=== PATIENT | male | born 1955 | race Caucasian/White ===

== ENCOUNTER 2016-09-20 04:26 | Inpatient (IN) | payer OTHER ==
[~2016-09-20] VITALS: Ht 177.8 cm; Wt 94.6 kg
--- NOTE | ~2016-09-20 | EKG ---
PATIENT: SEKOU BROWN UNIT #: [id number] Ventricular Rate: 77 BPM Atrial Rate: 77 BPM P-R Interval: 148 ms QRS Duration: 106 ms Q-T Interval: 354 ms QTC Calculation(Bezet): 400 ms P Independence: 49 degrees Calculated R Independence: -20 degrees Calculated T Independence: 57 degrees Diagnosis Line: Normal sinus rhythm with sinus arrhythmia Diagnosis Line: Abnormal ECG Diagnosis Line: Right bundle branch block -or- right ventricular Diagnosis Line: hypertrophy Diagnosis Line: Diagnosis Line: Confirmed by MISTY PADILLA MD ([id number]) on 09/21/2016 Diagnosis Line: 7:31:48 PM INTERPRETING MD: VALERIE TOLENTINO
--- NOTE | ~2016-09-20 | CR72 ---
[facility] A Service of [facility] RADIOLOGY TEXT RESULTS PATIENT: SEKOU BROWN JR LOCATION: [facility] : 55 UNIT #: [id number] AGE: [address]: Chicho Castellanos MD SEX: M ORDER DR: [id number] [facility] [address] [facility] [place], [place] [address] [id number] I MR#: [id number] Acc #: [id number] NAME: SEKOU BROWN JR : 1955 SEX: M STUDY DATE/TIME: 09/20/2016 5:32 UNIT: [address] ROOM: [facility] STUDY DESCRIPTION: CR Chest Single View Portable Attending Physician: Chicho Castellanos M.D. Ordering Physician: Tyrone Laurent M.D. Primary Care Physician: Guillermo Aceves M.D. MEDICAL IMAGING REPORT This report is preliminary unless electronic signature is present EXAM AP portable chest. DATE 09/20/2016 HISTORY Shortness of breath, chest pain, and COPD this morning. COMPARISON AP portable chest, 03/30/2015. FINDINGS Patchy airspace disease is present within the right lower lobe, consistent the appearance of pneumonia. Background emphysematous changes are thought to be present. Heart size is within normal limits with signs of prior CABG. IMPRESSION 1. New patchy right lower lobe airspace disease in keeping with the appearance of pneumonia. 2. CABG changes. Dictated by... Corinna Howe M.D. THIS IS AN ELECTRONICALLY VERIFIED REPORT Corinna Howe M.D. at 09/20/2016 9:[address] [facility]/candido TD: 09/20/2016 10:13 [facility] A Service [facility] RADIOLOGY TEXT RESULTS PATIENT: SEKOU BROWN JR LOCATION: [facility] : 55 UNIT #: [id number] AGE: [address]: Chicho Castellanos MD SEX: M ORDER DR: JOB #: [id number] MEDICAL IMAGING REPORT Page 1 of 1 COPY
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
--- NOTE | ~2016-09-20 | DS ---
Unit #: [id number] #: [id number] Patient: SEKOU BROWN JR [id number] [address] [address] [id number] I MR#: [id number] NAME: SEKOU BROWN JR ROOM: [facility] Age: 61 Sex: M Admission Date: 09/20/2016 : 1955 Discharge Date: 09/21/2016 Attending Physician: Chicho Castellanos M.D. Primary Care Physician: Guillermo Aceves M.D. DISCHARGE SUMMARY PRIMARY DIAGNOSIS Acute community acquired pneumonia. SECONDARY DIAGNOSES 1. Chronic hypoxemic respiratory failure. 2. Ongoing tobacco abuse. 3. Noncompliance with oxygen. 4. Hypokalemia. 5. Coronary artery disease. 6. Noncompliant for followup with heart and lung doctors. 7. Chronic pain syndrome. 8. Acute exacerbation of chronic obstructive pulmonary disease. HOSPITAL COURSE The patient was admitted to the hospital with community acquired pneumonia and saw Dr. Jenaro Ontiveros with pulmonary and Dr. Heath with cardiology. He was given IV antibiotics. He was given IV steroids. He had the addition of metoprolol to his home medications and advised to start taking a baby aspirin daily in addition to his previous home medications. He will be placed on prednisone taper and given prescriptions for ProAir and Advair inhalers. He will be on Zithromax and Ceftin to continue to treat his pneumonia. DISCHARGE DISPOSITION Home. DISCHARGE STATUS Stable. DISCHARGE ACTIVITY Ad naina. DIET Unrestricted. DISCHARGE MEDICATIONS 1. Ceftin 500 mg p.o. b.i.d. for 8 days. 2. Zithromax 500 mg p.o. daily for 5 days. 3. Prednisone taper, please see prescription. 4. ProAir 2 puffs q.4 h. p.r.n. shortness of breath. 5. Advair 1 inhalation b.i.d. 6. Potassium chloride 20 mEq p.o. b.i.d. 7. Atorvastatin 40 mg p.o. daily. 8. Lyrica 300 mg p.o. b.i.d. Unit #: [id number] #: [id number] Patient: SEKOU BROWN JR 9. Protonix 40 mg p.o. b.i.d. 10. Brilinta 90 mg p.o. b.i.d. 11. Percocet 10 mg 2 tablets p.o. q.i.d. p.r.n. pain. 12. OxyContin 60 mg p.o. b.i.d. 13. Aspirin 81 mg p.o. daily. 14. Losartan 100 mg tablets, take 0.5 tablet daily. 15. Metoprolol tartrate 25 mg p.o. b.i.d. Dictated by... Chicho Castellanos M.D. ALYSE/rebecca TD: 09/22/2016 09:33 JOB #: [id number] DISCHARGE SUMMARY Page 1 of 1 X Chicho Castellanos MD X DISCHARGE SUMMARY
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
[~2016-09-20 04:26] MED LIST: ACETAMINOPHEN PO; ASPIRIN EC81 M1 PO; AUGMENTIN875 MG PO; BACTRIM DS TABL1 TA1 PO; CLINDAMYCIN HC300 MG PO; COLACE PO; COMBIVENT INH14.7 GM; COMBIVENT INH14.7 GM INH; COMBIVENT INHALER INH; COMBIVENT U/D3 ML; COMBIVENT14.7 GM; ERYTHROMYC3.5 GM OPT OS; FAMOTIDINE PO; FLORASTOR250 M1 PO; IPRATR-ALBUTEROL3 ML IH; LORTAB 5/500 TA1 TA1 PO; LYRICA PO; LYRICA300 MG PO; MILK OF MAGNESIA PO; MUCINEX DM1 TAB.SR . PO; NEURONTIN PO; NICOTINE T1 PATCH .2 TOP; OXYCONTIN PO; OXYCONTIN60 MG PO; PERCOCET 10/3251 TAB PO; PERCOCET10 PO; PREDNISONE PO; PREDNISONE10 MG/DOSE PO; ZITHROMAX PO; ZITHROMAX1 G/PKT
[2016-09-20 05:46] LABS: POC - CKMB 1.4 ng/mL (0.0-7.9); POC - TROPONIN <0.05 ng/mL (<=0.05)
[2016-09-20 05:52] LABS: BASOPHIL% 0.2 % (0-2.5); DIFF IND NO; EOSINOPHIL% 0.2 % (0.0-7.0); HEMOGLOBIN 13.2 gm/dL (13.0-16.0); LYMPHOCYTE# 1.1 X10e3 (1.0-3.5); MEAN CELL VOLUME 88.9 FL (83-96); MEAN CORPUSCULAR HEMOGLOBIN 29.4 PG (28-34); MEAN CORPUSCULAR HGB CONC 33.1 g/dL (30-36); MEAN PLATELET VOLUME 7.8 FL (6.5-11.5); MONOCYTE# 0.7 X10e3 (0-1.0); MONOCYTE% 4.7 % (3.0-12.0); NEUTROPHIL# 13.2 X10e3 (1.5-7.1); NEUTROPHIL% 87.9 % (40-75); PLATELET COUNT 218 X10e3 (140-420); RED BLOOD COUNT 4.51 X10e (3.90-5.60); RED CELL DISTRIBUTION WIDTH 15.1 % (11.0-15.5)
[2016-09-20 06:17] LABS: BUN/CREATININE RATIO 15.55; CALCIUM SERUM 8.5 mg/dL (8.4-10.2); CREATININE SERUM 0.9 mg/dL (0.6-1.4); GLOM FILT RATE Estimated 91.9 mL/min (>60); POTASSIUM 3.4 mmol/L (3.5-5.1)
[2016-09-20 11:47] LABS: CHOLESTEROL 174 mg/dL (0-200); HDL CHOLESTEROL 56 mg/dL (29-75); LDL CHOLESTEROL 103 mg/dL (-130); LDL/HDL RATIO 2 RATIO (0-4); TRIGLYCERIDES 77 mg/dL (10-160)
[2016-09-20] MEDS ORDERED: PERCOCET5/325 PO (12:32)
[2016-09-20] MEDS ORDERED: LYRICA300 MG PO (12:33)
[2016-09-20] MEDS ORDERED: OXYCONTIN60 MG PO (12:33)
[2016-09-20] MEDS ORDERED: ATORVASTATIN CA40 MG PO (12:37)
[2016-09-20] MEDS ORDERED: PANTOPRAZOLE SO40 MG PO (12:38)
[2016-09-20] MEDS ORDERED: BRILINTA90 MG PO (12:39)
[2016-09-20] MEDS ORDERED: LOSARTAN POTAS100 MG PO (12:41)
[2016-09-21 05:30] LABS: HEMATOCRIT 39.7 % (38.0-50.0); HEMOGLOBIN 13.2 gm/dL (13.0-16.0); MEAN CORPUSCULAR HEMOGLOBIN 29.6 PG (28-34); MEAN CORPUSCULAR HGB CONC 33.2 g/dL (30-36); MEAN PLATELET VOLUME 8.1 FL (6.5-11.5); RED BLOOD COUNT 4.46 X10e (3.90-5.60); RED CELL DISTRIBUTION WIDTH 15.3 % (11.0-15.5); WHITE BLOOD COUNT 17.8 X10e3 (4.0-10.5)
[2016-09-21 06:18] LABS: BUN/CREATININE RATIO 24.54; CALCIUM SERUM 9.1 mg/dL (8.4-10.2); CREATININE SERUM 1.1 mg/dL (0.6-1.4); GLOM FILT RATE Estimated 72.1 mL/min (>60); MAGNESIUM 1.9 mg/dL (1.6-3.0); POTASSIUM 3.6 mmol/L (3.5-5.1)
[2016-09-21] MEDS ORDERED: LIPITOR40 MG PO (15:20)
[2016-09-21] MEDS ORDERED: METOPROLOL TART25 MG PO (15:20)
[2016-09-21] MEDS ORDERED: ASPIRIN81 MG PO (15:22)
[2016-09-21] MEDS ORDERED: KCL PO (15:24)
[2016-09-21] MEDS ORDERED: PREDNISONE10 MG PO (15:25)
[2016-09-21] MEDS ORDERED: PROAIR HFA8.5 GM INH (15:27)
[2016-09-21] MEDS ORDERED: ADVAIR 115-21 INH (15:28)
[2016-09-21] MEDS ORDERED: ZITHROMAX500 MG PO (15:29)
[2016-09-21] MEDS ORDERED: CEFTIN PO (15:30)
== END 2016-09-21 16:42 | disposition home or self-care (01) | DRG 189 ==
LOC: CED 04:26 → CEDOF 06:35 → CED 07:15 → C3A PCU 07:47 → CEDOF 07:47 → C3A PCU 07:47
PROVIDERS: Emergency Medicine; Internal Medicine; Internal Medicine Cardiovascular Disease
DX: J96.21 Acute and chronic respiratory failure with hypoxia (principal); J18.9 Pneumonia, unspecified organism; T82.858A Stenosis of other vascular prosthetic devices, implants and grafts, initial encounter; J44.0 Chronic obstructive pulmonary disease with (acute) lower respiratory infection; J44.1 Chronic obstructive pulmonary disease with (acute) exacerbation; Z91.19 Patient's noncompliance with other medical treatment and regimen; Z99.81 Dependence on supplemental oxygen; E87.6 Hypokalemia; I25.10 Atherosclerotic heart disease of native coronary artery without angina pectoris; G89.4 Chronic pain syndrome; I08.0 Rheumatic disorders of both mitral and aortic valves; M79.7 Fibromyalgia; G62.9 Polyneuropathy, unspecified; Z88.1 Allergy status to other antibiotic agents; F41.0 Panic disorder [episodic paroxysmal anxiety]; Y71.8 Miscellaneous cardiovascular devices associated with adverse incidents, not elsewhere classified; F41.9 Anxiety disorder, unspecified; E78.5 Hyperlipidemia, unspecified; F17.210 Nicotine dependence, cigarettes, uncomplicated; Z71.6 Tobacco abuse counseling
CPT/HCPCS: 36415; 71010; 80048; 80061; 82553; 83735; 84484; 85025; 85027; 87040; 93005; 94640; 94664; 94760; 96365; 96375; 99285; J0456; J0696; J1650; J2920; J2930

== ENCOUNTER 2016-10-04 22:01 | Inpatient (IN) | payer OTHER ==
[~2016-10-04] VITALS: Ht 177.8 cm; Wt 98.0 kg
--- NOTE | ~2016-10-04 | EKG ---
PATIENT: SEKOU BROWN UNIT #: [id number] Ventricular Rate: 80 BPM Atrial Rate: 80 BPM P-R Interval: 144 ms QRS Duration: 100 ms Q-T Interval: 362 ms QTC Calculation(Bezet): 417 ms P [place]: 69 degrees Calculated R [place]: -23 degrees Calculated T [place]: 51 degrees Diagnosis Line: Sinus rhythm with Premature atrial complexes Diagnosis Line: Nonspecific ST abnormality Diagnosis Line: Abnormal ECG Diagnosis Line: Diagnosis Line: Confirmed by DEMETRIUS WATKINS MD ([id number]) on Diagnosis Line: 10/05/2016 10:37:28 PM INTERPRETING MD: KAUSHAL
--- NOTE | ~2016-10-04 | DS ---
Unit #: [id number] #: [id number] Patient: SEKOU BROWN JR [id number] [address] [address] [id number] I MR#: [id number] NAME: SEKOU BROWN JR ROOM: 337 Age: 61 Sex: M Admission Date: 10/05/2016 : 1955 Discharge Date: 10/06/2016 Attending Physician: Renu Lima M.D. Primary Care Physician: Guillermo Aceves M.D. DISCHARGE SUMMARY DISCHARGE DIAGNOSIS 1. Xhrej-pa-olewjby hypercapnic hypoxic respiratory failure. 2. Chronic obstructive pulmonary disease with exacerbation. 3. Likely cor pulmonale with mild pedal edema. Also could be from steroids. 4. Coronary artery disease with normal left ventricular function. 5. Chronic pain. 6. Hypertension. 7. Smoking. 8. Hyperlipidemia. 9. Peripheral neuropathy. 10. Essential hypertension. 11. Anxiety. 12. History of thoracic aortic aneurysm, 3.6 cm. 13. History of CABG. 14. History of spinal cord stimulator and later removed. 15. Mild hyponatremia. 16. Mild hypocalcemia. 17. Obesity. CONSULTANTS Dr. Ontiveros. PROCEDURES PERFORMED None. DIAGNOSTIC DATA LABORATORY: Sodium 133, potassium 4.7, creatinine 0.8, liver enzymes normal, albumin 3.1, magnesium 2.2, WBC 10.4, hemoglobin 11.9, platelets 292,000. Urinalysis negative for infection. Troponins negative. Strep throat screen negative. IMAGING: Ultrasound of the extremities negative for DVT. Chest x-ray shows no active disease. CARDIOVASCULAR: EKG shows sinus rhythm. ALLERGIES Levaquin. DISCHARGE MEDICATIONS 1. ProAir 8 grams inhalation q.4 h. p.r.n. shortness of breath. 2. Advair 1 inhalation b.i.d. Unit #: [id number] #: [id number] Patient: SEKOU BROWN JR 3. Lyrica 300 mg p.o. b.i.d. 4. Atorvastatin 40 mg daily. 5. Nicotine 21 mg transdermal daily. 6. Metoprolol 25 mg p.o. b.i.d. 7. Lipitor 40 mg daily. 8. Cozaar 50 mg daily. 9. Aspirin 81 mg daily. 10. OxyContin 60 mg p.o. b.i.d. 11. Percocet 20 mg q.4 h. p.r.n. pain. 12. Brilinta 90 mg p.o. daily. 13. Protonix 40 mg p.o. b.i.d. 14. Incruse inhaler daily. 15. Prednisone tapering dose. HOSPITAL COURSE The patient is a 61-year-old admitted because of shortness of breath. Hpfar-ed-wbrwtmh hypoxic hypercapnic respiratory failure from chronic obstructive pulmonary disease. He is on home oxygen. I am going to evaluate home O2 for the daytime. He takes it at nighttime. The patient will have ABG. Chronic obstructive pulmonary disease with exacerbation: Started on IV Solu-Medrol and duo-nebs. Currently breathing better. Continue with Advair, ProAir and Incruse inhaler daily as per Dr. Ontiveros. No urinary tract infection. Pedal edema: Likely from cor pulmonale versus from steroids. Mild. Follow up with primary care physician. Chronic pain: Stable. Continue with home medications. DISPOSITION Discharge home. FOLLOWUP Follow up with family physician in one week time. Discharge time taken was 31 minutes . Dictated by... Saeid Parham/rebecca TD: 10/06/2016 11:19 JOB #: [id number] CC: Guillermo Aceves M.D. Unit #: [id number] #: [id number] Patient: SEKOU BRONW JR DISCHARGE SUMMARY Page 1 of 1 X Renu Lima MD X DISCHARGE SUMMARY
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
--- NOTE | ~2016-10-04 | CR72 ---
[facility] A Service of [facility] RADIOLOGY TEXT RESULTS PATIENT: SEKOU BROWN JR LOCATION: [place] [address] : [birth year] UNIT #: [id number] AGE: [address]: Renu Lima MD SEX: M ORDER DR: [id number] [facility] [address] [place], [place] [address] [id number] I MR#: [id number] Acc #: [id number] NAME: SEKOU BROWN JR : 1955 SEX: M STUDY DATE/TIME: 10/04/2016 22:29 UNIT: CEDOF ROOM: 86225 STUDY DESCRIPTION: CR Chest Single View Portable Attending Physician: Filomena De Paz M.D. Ordering Physician: Ed Walt Engel M.D. Primary Care Physician: Guillermo Aceves M.D. MEDICAL IMAGING REPORT This report is preliminary unless electronic signature is present EXAM Portable chest HISTORY Cough and shortness of air today. FINDINGS The cardiac size and pulmonary vascularity are normal. Mild right lower thoracic curve. Mild hyperinflation of both lungs. Sternotomy and CABG markers. Surgical clips in the left axilla. Interval resolution of mild patchy infiltrate in the lateral right base compared to 09/20/2016. IMPRESSION No active disease. Interval resolution of mild patchy infiltrate in the lateral right base compared to 09/20/2016. Dictated by... Tez Cannon M.D. THIS IS AN ELECTRONICALLY VERIFIED REPORT Tez Cannon M.D. at 10/05/2016 6:27 PM RIMA/devon TD: 10/05/2016 04:40 JOB #: [id number] MEDICAL IMAGING REPORT Page 1 of 1 COPY
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
--- NOTE | ~2016-10-04 | US84 ---
[id number] [facility] [address] [place], [place] [address] [id number] I MR#: [id number] Acc #: [id number] NAME: SEKOU BROWN : 1955 SEX: M STUDY DATE/TIME: 10/05/2016 8:49 UNIT: C3A PCU ROOM: 337 STUDY DESCRIPTION: US LE Veins Complete Chandler Stdy Attending Physician: Renu Lima M.D. Ordering Physician: Filomena De Paz M.D. Primary Care Physician: Guillermo Aceves M.D. MEDICAL IMAGING REPORT This report is preliminary unless electronic signature is present EXAM Bilateral lower extremity venous duplex 10/05/2016 HISTORY Bilateral lower extremity pain and edema for 10 days with calf cramping. Evaluate for deep vein thrombosis. TECHNIQUE Venous ultrasound examination of both lower extremities was performed using grayscale, spectral Doppler and color flow Doppler imaging. FINDINGS The examination is negative. There is no evidence of deep venous thrombus from the groin to the lower calf bilaterally. Visualized greater saphenous veins are also patent. IMPRESSION Negative examination. No evidence of lower extremity deep venous thrombosis. Dictated by... Scott Marshall M.D. THIS IS AN ELECTRONICALLY VERIFIED REPORT Scott Marshall M.D. at 10/06/2016 7:28 AM MARSHALL/dayna TD: 10/05/2016 11:53 JOB #: [id number] MEDICAL IMAGING REPORT Page 1 of 1 COPY
[~2016-10-04 22:01] MED LIST changes: +ADVAIR 115-21 INH; +ASPIRIN81 MG PO; +ATORVASTATIN CA40 MG PO; +BRILINTA90 MG PO; +CEFTIN PO; +KCL PO; +LIPITOR40 MG PO; +LOSARTAN POTAS100 MG PO; +METOPROLOL TART25 MG PO; +PANTOPRAZOLE SO40 MG PO; +PERCOCET5/325 PO; +PREDNISONE10 MG PO; +PROAIR HFA8.5 GM INH; +ZITHROMAX500 MG PO
[2016-10-04 23:03] LABS: BASOPHIL# 0.1 X10e3 (0-0.3); BASOPHIL% 0.5 % (0-2.5); EOSINOPHIL# 0.1 X10e3 (0-0.7); EOSINOPHIL% 0.9 % (0.0-7.0); HEMATOCRIT 41.9 % (38.0-50.0); HEMOGLOBIN 13.6 gm/dL (13.0-16.0); LYMPHOCYTE# 1.5 X10e3 (1.0-3.5); LYMPHOCYTE% 12.5 % (17.0-45.0); MEAN CORPUSCULAR HEMOGLOBIN 29.2 PG (28-34); MEAN CORPUSCULAR HGB CONC 32.4 g/dL (30-36); MEAN PLATELET VOLUME 7.2 FL (6.5-11.5); MONOCYTE# 1.1 X10e3 (0-1.0); MONOCYTE% 8.9 % (3.0-12.0); NEUTROPHIL# 9.2 X10e3 (1.5-7.1); NEUTROPHIL% 77.2 % (40-75); PLATELET COUNT 332 X10e3 (140-420); RED BLOOD COUNT 4.66 X10e (3.90-5.60); RED CELL DISTRIBUTION WIDTH 15.6 % (11.0-15.5); WHITE BLOOD COUNT 11.9 X10e3 (4.0-10.5)
[2016-10-04 23:08] LABS: DIFF IND NO
[2016-10-04 23:27] LABS: CALCIUM SERUM 8.4 mg/dL (8.4-10.2); GLOM FILT RATE Estimated 80.9 mL/min (>60); POTASSIUM 4.3 mmol/L (3.5-5.1)
[2016-10-05 00:30] LABS: ARTERIAL BLD GAS O2 SATURATION 84.9 % (90.0-100.0); ARTERIAL BLOOD GAS CARBOXY HB 5.2 %sat (0.0-9.0); ARTERIAL BLOOD GAS HCO3 33.5 mmol/L; ARTERIAL BLOOD GAS MET HB 0.8 %sat (0.0-2.0); ARTERIAL BLOOD GAS pH 7.407 (7.350-7.450)
[2016-10-05 00:31] LABS: ARTERIAL BLOOD GAS ALLEN TEST NORMAL; ARTERIAL BLOOD GAS ART SITE LEFT RADIAL; ARTERIAL BLOOD GAS DELIVERY NASAL CANNULA; ARTERIAL BLOOD GAS PCO2 53.2 mmHg (35.0-45.0); ARTERIAL BLOOD GAS PO2 57.5 mmHg (80.0-100); ARTERIAL DRAW? YES
[2016-10-05 00:47] LABS: ALBUMIN SERUM 3.6 g/dL (3.5-5.0); ALKALINE PHOSPHATASE 73 U/L (32-92); ALT (SGPT) 13 U/L (10-40); AST (SGOT) 14 U/L (10-42); BILIRUBIN, DIRECT <0.1 mg/dL (0.0-0.2); BILIRUBIN,INDIRECT 0.5 mg/dL (0.0-0.9); BILIRUBIN,TOTAL 0.6 mg/dL (0.2-2.0); PROTEIN TOTAL SERUM 7.3 g/dL (6.0-8.3)
[2016-10-05 01:29] LABS: POC - CKMB 3.4 ng/mL (0.0-7.9); POC - TROPONIN <0.05 ng/mL (<=0.05)
[2016-10-05 07:18] LABS: BASOPHIL% 0.2 % (0-2.5); HEMATOCRIT 39.3 % (38.0-50.0); HEMOGLOBIN 13.1 gm/dL (13.0-16.0); LYMPHOCYTE# 0.3 X10e3 (1.0-3.5); LYMPHOCYTE% 3.2 % (17.0-45.0); MEAN CORPUSCULAR HEMOGLOBIN 29.9 PG (28-34); MEAN CORPUSCULAR HGB CONC 33.3 g/dL (30-36); MEAN PLATELET VOLUME 7.2 FL (6.5-11.5); MONOCYTE# 0.1 X10e3 (0-1.0); MONOCYTE% 1.1 % (3.0-12.0); NEUTROPHIL% 95.5 % (40-75); PLATELET COUNT 293 X10e3 (140-420); RED BLOOD COUNT 4.37 X10e (3.90-5.60); RED CELL DISTRIBUTION WIDTH 15.4 % (11.0-15.5); WHITE BLOOD COUNT 10.5 X10e3 (4.0-10.5)
[2016-10-05 07:23] LABS: DIFF IND NO
[2016-10-05 07:54] LABS: CALCIUM SERUM 8.6 mg/dL (8.4-10.2); GLOM FILT RATE Estimated 80.9 mL/min (>60)
[2016-10-05 14:47] LABS: URINE SOURCE CLEAN CATCH
[2016-10-05 14:55] LABS: URINE APPEARANCE CLEAR; URINE BILIRUBIN NEG (NEG); URINE BLOOD NEG (NEG); URINE COLOR YELLOW; URINE GLUCOSE 100 MG/DL (NEG); URINE KETONE NEG (NEG); URINE LEUKOCYTE ESTERASE NEG (NEG); URINE NITRATE NEG (NEG); URINE PH 6.5 (5-8); URINE PROTEIN NEG (NEG); URINE SPECIFIC GRAVITY 1.026 (1.003-1.035)
[2016-10-06 06:39] LABS: URINE APPEARANCE CLEAR; URINE BILIRUBIN NEG (NEG); URINE BLOOD NEG (NEG); URINE COLOR YELLOW; URINE GLUCOSE 250 MG/DL (NEG); URINE KETONE NEG (NEG); URINE LEUKOCYTE ESTERASE NEG (NEG); URINE NITRATE NEG (NEG); URINE PH 5.5 (5-8); URINE PROTEIN NEG (NEG); URINE SPECIFIC GRAVITY 1.027 (1.003-1.035)
[2016-10-06 07:56] LABS: HEMATOCRIT 35.6 % (38.0-50.0); HEMOGLOBIN 11.9 gm/dL (13.0-16.0); MEAN CELL VOLUME 89.3 FL (83-96); MEAN CORPUSCULAR HEMOGLOBIN 29.8 PG (28-34); MEAN CORPUSCULAR HGB CONC 33.3 g/dL (30-36); MEAN PLATELET VOLUME 7.2 FL (6.5-11.5); RED BLOOD COUNT 3.99 X10e (3.90-5.60); WHITE BLOOD COUNT 10.4 X10e3 (4.0-10.5)
[2016-10-06 08:20] LABS: ALBUMIN SERUM 3.1 g/dL (3.5-5.0); BILIRUBIN,TOTAL 0.3 mg/dL (0.2-2.0); CALCIUM SERUM 8.3 mg/dL (8.4-10.2); CREATININE SERUM 0.8 mg/dL (0.6-1.4); GLOM FILT RATE Estimated 96.5 mL/min (>60); MAGNESIUM 2.2 mg/dL (1.6-3.0); POTASSIUM 4.7 mmol/L (3.5-5.1); PROTEIN TOTAL SERUM 6.3 g/dL (6.0-8.3)
[2016-10-06] MEDS ORDERED: NICOTINE1 EACH TD (12:39)
[2016-10-06] MEDS ORDERED: PREDNISONE10 M1 PO (12:43)
[2016-10-06] MEDS ORDERED: PROAIR HFA8.5 GM INH (12:45)
[2016-10-06 12:48] LABS: ARTERIAL BLD GAS O2 SATURATION 91.3 % (90.0-100.0); ARTERIAL BLOOD GAS CARBOXY HB 3.6 %sat (0.0-9.0); ARTERIAL BLOOD GAS HCO3 28.7 mmol/L; ARTERIAL BLOOD GAS MET HB 0.7 %sat (0.0-2.0); ARTERIAL BLOOD GAS PCO2 42.4 mmHg (35.0-45.0); ARTERIAL BLOOD GAS PO2 70.4 mmHg (80.0-100); ARTERIAL BLOOD GAS pH 7.439 (7.350-7.450); ARTERIAL DRAW? YES
[2016-10-06 12:49] LABS: ARTERIAL BLOOD GAS ART SITE RIGHT BRACHIAL
== END 2016-10-06 13:20 | disposition home or self-care (01) | DRG 190 ==
LOC: CED 22:01 → CEDOF 10-05 03:31 → C3A PCU 10-05 05:03 → CEDOF 10-05 05:03 → C3A PCU 10-05 07:49
PROVIDERS: Internal Medicine; Nurse Practitioner
DX: J44.1 Chronic obstructive pulmonary disease with (acute) exacerbation (principal); J96.21 Acute and chronic respiratory failure with hypoxia; I27.81 Cor pulmonale (chronic); E87.1 Hypo-osmolality and hyponatremia; G62.9 Polyneuropathy, unspecified; E83.51 Hypocalcemia; J96.22 Acute and chronic respiratory failure with hypercapnia; I25.10 Atherosclerotic heart disease of native coronary artery without angina pectoris; Z95.1 Presence of aortocoronary bypass graft; Z95.5 Presence of coronary angioplasty implant and graft; G89.4 Chronic pain syndrome; M79.7 Fibromyalgia; I10 Essential (primary) hypertension; F17.200 Nicotine dependence, unspecified, uncomplicated; E78.5 Hyperlipidemia, unspecified; F41.9 Anxiety disorder, unspecified; E66.9 Obesity, unspecified; I25.2 Old myocardial infarction; I08.0 Rheumatic disorders of both mitral and aortic valves; Z79.82 Long term (current) use of aspirin; Z71.6 Tobacco abuse counseling
CPT/HCPCS: 36415; 36600; 71010; 80048; 80053; 80076; 81003; 82553; 82803; 83735; 83880; 84484; 85025; 85027; 85610; 85730; 87040; 87086; 87651; 93005; 93306; 93970; 94640; 94664; 94760; 96374; 99285; J1650; J2920; J2930

== ENCOUNTER 2016-10-11 19:02 | Emergency (ER) | payer OTHER ==
[~2016-10-11] VITALS: Ht 177.8 cm; Wt 98.0 kg
[~2016-10-11 19:02] MED LIST changes: +NICOTINE1 EACH TD; +PREDNISONE10 M1 PO
== END 2016-10-11 21:19 | disposition home or self-care (01) ==
LOC: CED 19:02
DX: L02.11 Cutaneous abscess of neck (principal); L03.221 Cellulitis of neck; J44.9 Chronic obstructive pulmonary disease, unspecified; Z86.79 Personal history of other diseases of the circulatory system; Z88.1 Allergy status to other antibiotic agents; Z79.82 Long term (current) use of aspirin; Z79.899 Other long term (current) drug therapy
CPT/HCPCS: 10060; 99283